=== PATIENT | female | born 1980 | race Caucasian/White ===

== ENCOUNTER 2024-08-25 08:00 | Oncology outpatient (recurring) (ONCR) | payer BC, MEDICAID, SELFPAY ==
[2024-08-25] MEDS: acetaminophen 325 mg Tablet 650 MG PO (11:15)
[2024-08-25] MEDS: sodium chloride 0.9% 500 ML 75 ML IV (11:16)
[2024-08-25] MEDS: diphenhydrAMINE 50 mg/mL SDV 1mL 25 MG IVP (11:16)
[2024-08-25 11:21] LABS: Reticulocyte % 1.4 % (0.5-2.0)
[2024-08-25 11:22] LABS: Basophils % 0.4 %; Eosinophils # 1.2 10^3/uL (0.0-0.8); Eosinophils % 14.9 %; Hematocrit 31.3 % (36-47); Lymphocytes # 1.8 10^3/uL (0.8-4.8); Lymphocytes % 22.8 %; Mean Corpuscular HGB Conc 28.1 g/dL (30-55); Mean Corpuscular Hemoglobin 20.2 pg (27-33); Mean Corpuscular Volume 71.8 fl (85-98); Mean Platelet Volume 9.1 fL (7.4-10.4); Monocytes # 0.4 10^3/uL (0.2-0.9); Monocytes % 5.7 %; Neutrophils # 4.35 10^3/uL (1.8-7.7); Neutrophils % 55.9 %; Nucleated Red Blood Cells % 0 %; Platelet Count 348 10^3/cmm (157-399); Red Blood Count 4.36 10^6/uL (3.85-5.65); Red Cell Distribution Width 18.6 % (12.1-15.1); White Blood Count 7.77 10^3/uL (3.29-11.43)
[2024-08-25 11:26] LABS: HCG Qualitative Urine. Negative (Negative)
[2024-08-25] MEDS: iron dextran 25 MG in SYRINGE 1 EACH 30 MG IVP (11:36)
[2024-08-25 11:51] LABS: Lactate Dehydrogenase 250 U/L (135-214)
[2024-08-25] MEDS: iron dextran 975 MG in sodium chloride 0.9% 1,000 ML 166 MG IV (12:44)
[2024-08-25 12:59] VITALS: BP 125/78; PULSE 83; RESP 18; TEMP 37.2; O2SAT 98
[2024-08-25 17:26] VITALS: BP 115/73; PULSE 78; RESP 18; TEMP 36.2; O2SAT 98
[2024-09-01 14:15] LABS: Factor Viii, Activity 163 % normal (50-180); Partial Thromboplastin Time, A 26 sec (23-32); Von Willebrand Factor (Rcf) 110 % normal (42-200); Von Willebrand Factor Ag 129 % (50-217)
== END 2024-09-12 23:59 | disposition home or self-care (01) ==
PROVIDERS: Nurse Practitioner Family; PCP Family Medicine; Visit Provider Internal Medicine
DX: Z53.9 Procedure and treatment not carried out, unspecified reason; D50.0 Iron deficiency anemia secondary to blood loss (chronic); Z79.899 Other long term (current) drug therapy
CPT/HCPCS: 81025; 83010; 83615; 85025; 85045; 85240; 85245; 85246; 86880; 96365; 96366; 96374; 96375; J1200; J1750; J7030; J7040; J9999

== ENCOUNTER 2024-09-22 07:20 | Oncology outpatient (recurring) (ONCR) | payer BC, MEDICAID, SELFPAY ==
[2024-09-22 07:40] LABS: Hematocrit 37.6 % (36-47); Hemoglobin 11.30 g/dL (11.27-16.99); Mean Corpuscular HGB Conc 30.1 g/dL (30-55); Mean Corpuscular Hemoglobin 24.7 pg (27-33); Mean Corpuscular Volume 82.3 fl (85-98); Nucleated Red Blood Cells % 0 %; Platelet Count 287 10^3/cmm (157-399); Red Blood Count 4.57 10^6/uL (3.85-5.65); White Blood Count 8.47 10^3/uL (3.29-11.43)
[2024-09-22 07:58] LABS: Alanine Aminotransferase 10 U/L (0-33); Albumin Level 3.5 g/dL (3.5-5.2); Alkaline Phosphatase 64 U/L (35-105); Anion Gap 15.1 (5-19); Aspartate Amino Transferase 14 U/L (0-32); Blood Urea Nitrogen 7 mg/dL (6-20); Calcium 8.9 mg/dL (8.5-10.5); Carbon Dioxide 25 mmol/L (22-29); Chloride 105 mmol/L (98-107); Globulin 3.5 g/dL (1.3-4.6); Glucose 116 mg/dL (65-115); Osmolality Calculated 291 mOsm/kg (285-295); Potassium 4.1 mmol/L (3.5-5.1); Sodium 141 mmol/L (136-145); Total Protein 7.0 g/dL (6.6-8.7)
[2024-09-22 08:59] LABS: HCG Qualitative Urine. Negative (Negative)
[2024-09-22] MEDS: diphenhydrAMINE 50 mg/mL SDV 1mL 25 MG IVP (09:23)
[2024-09-22] MEDS: iron dextran 975 MG in sodium chloride 0.9% 1,000 ML 240 MG IV (11:15)
== END 2024-10-13 23:59 | disposition home or self-care (01) ==
PROVIDERS: Nurse Practitioner Family; PCP Family Medicine; Visit Provider Internal Medicine
DX: D50.0 Iron deficiency anemia secondary to blood loss (chronic) (principal); Z79.899 Other long term (current) drug therapy
CPT/HCPCS: 80053; 81025; 85025; 96365; 96366; J1200; J1750; J7030; J7040; J9999

== ENCOUNTER 2024-10-20 07:43 | Oncology outpatient (recurring) (ONCR) | payer BC, MEDICAID, SELFPAY ==
[2024-10-20 07:59] VITALS: BP 118/82; PULSE 79; TEMP 36.7; O2SAT 96
[2024-10-20 09:06] LABS: Hematocrit 40.9 % (36-47); Hemoglobin 12.70 g/dL (11.27-16.99); Mean Corpuscular HGB Conc 31.1 g/dL (30-55); Mean Corpuscular Hemoglobin 28.0 pg (27-33); Mean Corpuscular Volume 90.1 fl (85-98); Nucleated Red Blood Cells % 0 %; Platelet Count 290 10^3/cmm (157-399); Red Blood Count 4.54 10^6/uL (3.85-5.65); White Blood Count 8.59 10^3/uL (3.29-11.43)
--- NOTE | 2024-10-20 09:07 | PC.NURSE ---
Pt did not want to do an HCG urine test, pt stated there was no possible way she could be and asked if she could bypass the urine sample. Per SARAH Damon she did not have to as long as the patient was sure confident she wasn't . Educated pt that she didn't have to do it as long as there was no possibility she could be.
[2024-10-20 09:26] LABS: Alanine Aminotransferase 11 U/L (0-33); Albumin Level 3.6 g/dL (3.5-5.2); Alkaline Phosphatase 66 U/L (35-105); Anion Gap 10.0 (5-19); Aspartate Amino Transferase 13 U/L (0-32); Blood Urea Nitrogen 8 mg/dL (6-20); Calcium 9.0 mg/dL (8.5-10.5); Carbon Dioxide 29 mmol/L (22-29); Chloride 104 mmol/L (98-107); Creatinine Clr Calc Pharmacy 124.7388; Globulin 3.7 g/dL (1.3-4.6); Glucose 100 mg/dL (65-115); Osmolality Calculated 286 mOsm/kg (285-295); Potassium 4.0 mmol/L (3.5-5.1); Sodium 139 mmol/L (136-145); Total Protein 7.3 g/dL (6.6-8.7)
[2024-10-20 09:29] LABS: Add RBC Morph Yes; Anisocytosis 1+; Slide Review Slide Review Perform
[2024-10-20 09:30] LABS: Hypochromasia 1+; Pathology Refferal No; RBC Morph Comp Yes; Stomatocytes 1+
[2024-10-20] MEDS: diphenhydrAMINE 50 mg/mL SDV 1mL 25 MG IVP (09:58)
[2024-10-20] MEDS: iron dextran 400 MG in sodium chloride 0.9% 1,000 ML 250 MG IV (11:31)
[2024-10-20 15:52] VITALS: BP 119/68
== END 2024-11-13 23:59 | disposition home or self-care (01) ==
PROVIDERS: Nurse Practitioner Family; PCP Family Medicine; Visit Provider Internal Medicine
DX: D50.0 Iron deficiency anemia secondary to blood loss (chronic) (principal); Z79.899 Other long term (current) drug therapy
CPT/HCPCS: 36415; 80053; 85025; 96365; 96366; 96375; J1200; J1750; J7030; J7040; J9999

== ENCOUNTER 2024-10-27 09:28 | Outpatient (CLI) | payer BC, MEDICAID, SELFPAY ==
--- NOTE | 2024-10-27 | MM_ITS ---
WS: [id number] BILATERAL 3D TOMOSYNTHESIS DIGITAL DIAGNOSTIC MAMMOGRAPHY WITH CAD CLINICAL INFORMATION: BILATERAL NIPPLE DISCHARGE HISTORY: COMPARISON: None. TECHNIQUE: Bilateral CC, MLO, and ML views. FINDINGS: Scattered fibroglandular densities bilaterally. No suspicious parenchymal normalities. Ultrasound subareolar is pending. ULTRASOUND BREAST BILATERAL TECHNIQUE: Ultrasound bilateral breast focused area of concern. CLINICAL INFORMATION: BILATERAL NIPPLE DISCHARGE FINDINGS: RIGHT BREAST: Ultrasound subareolar. No visualized cystic or solid lesions. No suspicious lesions to target for biopsy. LEFT BREAST: Ultrasound subareolar.No visualized cystic or solid lesions. No suspicious lesions to target for biopsy. MM/MM diag tomosynthesis [id number] IMPRESSION: DENSITY: There are scattered areas of fibroglandular density. BI-RADS: 2 - Benign. FOLLOW UP: 1 Year Follow-up Recommend return to annual screening mammography.
--- NOTE | 2024-10-27 09:38 | US_ITS ---
WS: [id number] BILATERAL 3D TOMOSYNTHESIS DIGITAL DIAGNOSTIC MAMMOGRAPHY WITH CAD CLINICAL INFORMATION: BILATERAL NIPPLE DISCHARGE HISTORY: COMPARISON: None. TECHNIQUE: Bilateral CC, MLO, and ML views. FINDINGS: Scattered fibroglandular densities bilaterally. No suspicious parenchymal normalities. Ultrasound subareolar is pending. ULTRASOUND BREAST BILATERAL TECHNIQUE: Ultrasound bilateral breast focused area of concern. CLINICAL INFORMATION: BILATERAL NIPPLE DISCHARGE FINDINGS: RIGHT BREAST: Ultrasound subareolar. No visualized cystic or solid lesions. No suspicious lesions to target for biopsy. LEFT BREAST: Ultrasound subareolar.No visualized cystic or solid lesions. No suspicious lesions to target for biopsy. US/US breast BI limited* [id number] IMPRESSION: DENSITY: There are scattered areas of fibroglandular density. BI-RADS: 2 - Benign. FOLLOW UP: 1 Year Follow-up Recommend return to annual screening mammography.
== END 2024-10-27 09:29 | disposition home or self-care (01) ==
LOC: RAD 09:30
PROVIDERS: PCP Nurse Practitioner Family; Visit Provider Nurse Practitioner Family
DX: N64.52 Nipple discharge (principal); R92.323 Mammographic fibroglandular density, bilateral breasts
CPT/HCPCS: 76642; 77062; G0279

== ENCOUNTER 2025-02-16 12:16 | Oncology outpatient (recurring) (ONCR) | payer BC, MEDICAID, SELFPAY ==
[2025-02-16 13:07] LABS: Hematocrit 42.1 % (36-47); Hemoglobin 13.60 g/dL (11.27-16.99); Mean Corpuscular HGB Conc 32.3 g/dL (30-55); Mean Corpuscular Hemoglobin 30.5 pg (27-33); Mean Corpuscular Volume 94.4 fl (85-98); Nucleated Red Blood Cells % 0 %; Platelet Count 305 10^3/cmm (157-399); Red Blood Count 4.46 10^6/uL (3.85-5.65); White Blood Count 7.62 10^3/uL (3.29-11.43)
[2025-02-16 13:30] LABS: Alanine Aminotransferase 14 U/L (0-33); Albumin Level 3.7 g/dL (3.5-5.2); Alkaline Phosphatase 68 U/L (35-105); Anion Gap 12.9 (5-19); Aspartate Amino Transferase 17 U/L (0-32); Blood Urea Nitrogen 6 mg/dL (6-20); Calcium 8.9 mg/dL (8.5-10.5); Carbon Dioxide 29 mmol/L (22-29); Chloride 103 mmol/L (98-107); Globulin 3.5 g/dL (1.3-4.6); Glucose 88 mg/dL (65-115); Osmolality Calculated 289 mOsm/kg (285-295); Potassium 3.9 mmol/L (3.5-5.1); Sodium 141 mmol/L (136-145); Total Protein 7.2 g/dL (6.6-8.7)
[2025-02-16 15:41] LABS: Ferritin 40 ng/mL (15-150); Iron 94 ug/dL (37-145); Total Iron Binding Capacity 291 mcg/dl; Unsaturated Iron Binding 197 ug/dL (112-347)
== END 2025-03-15 23:59 | disposition home or self-care (01) ==
PROVIDERS: PCP Nurse Practitioner Family; Visit Provider Internal Medicine
DX: Z53.9 Procedure and treatment not carried out, unspecified reason; D50.0 Iron deficiency anemia secondary to blood loss (chronic)
CPT/HCPCS: 36415; 80053; 82728; 83010; 83540; 83550; 83615; 85025; 85045